=== PATIENT | male | born 1960 | race Caucasian/White ===

== ENCOUNTER 2022-06-07 07:42 | Emergency (ER) | payer OTHER ==
[~2022-06-07] VITALS: Ht 182.9 cm; Wt 70.3 kg
[2022-06-07 08:00] VITALS: BP 134/88
== END 2022-06-07 08:56 | disposition home or self-care (01) ==
LOC: ER 07:42
DX: Z76.0 Encounter for issue of repeat prescription (principal); M86.9 Osteomyelitis, unspecified; F17.210 Nicotine dependence, cigarettes, uncomplicated
CPT/HCPCS: 99281